=== PATIENT | female | born 1960 | race African-American/Black ===

== ENCOUNTER 2019-01-09 20:29 | Emergency (ER) | payer SELFPAY ==
[~2019-01-09] VITALS: Ht 152.4 cm; Wt 69.0 kg
[2019-01-10 00:06] LABS: CHLORIDE 108 mEq/L (98-107)
[2019-01-10 00:13] LABS: BASOPHILS % 0.4 % (0.0-2.0); EOSINOPHILS % 0.9 % (0.0-5.0); HEMATOCRIT. 38.6 % (36.0-48.0); HEMOGLOBIN. 12.8 g/dL (12.0-16.0); LYMPHOCYTES % 41.9 % (20.0-50.0); MEAN CORPUSCULAR VOLUME 87.8 fL (81.0-99.0); MEAN PLATELET VOLUME 9.7 fl (7.4-10.4); MONOCYTES % 6.9 % (2.0-8.0); NEUTROPHILS % 49.9 % (40.0-76.0); PLATELET 220 x1000/uL (130-400)
[2019-01-10 00:19] LABS: INR 0.9; PROTHROMBIN TIME 9.6 sec (9.6-11.0)
[2019-01-10 01:14] VITALS: BP 149/89
== END 2019-01-10 01:14 | disposition home or self-care (01) ==
LOC: ER 20:29 → CANBEDREQ 01-10 08:18
DX: R07.89 Other chest pain (principal); R10.13 Epigastric pain; M79.601 Pain in right arm; I10 Essential (primary) hypertension; F17.210 Nicotine dependence, cigarettes, uncomplicated; Z71.6 Tobacco abuse counseling
CPT/HCPCS: 36415; 71045; 80053; 83880; 84484; 85025; 85610; 93005; 99284; 99406; Z7610